=== PATIENT | male | born 1960 | race Caucasian/White ===

== ENCOUNTER 2019-04-03 08:03 | Outpatient (CLI) | payer BC ==
--- NOTE | 2019-04-03 09:20 | CT ---
CT neck soft tissues with contrast: DATE: 04/03/2019 HISTORY: 58-year-old male with left otalgia, left neck pain and tenderness, and odynophagia. Rule out neck mas s. FINDINGS: In the apicoposterior segment of the left upper lobe, there is an approximately 1 x 0.9 x 0.7 cm nonc alcified pulmonary nodule with irregular margins. No major pathology identified involving trachea, larynx, and thyroid. No evidence of significant cervical lymphadenopathy. No major pathology identified involving parotid, carotid, parapharyngeal, retropharyngeal, pharyngeal mucosal, posterior cervical, perivertebral, manager economic, submandibular, and sublingual, spaces. No evidence of focal edema or abscess. No gross opacification of bilateral tympanomastoid cavities or external auditory canals. No destructive osseous lesion identified. No high-grade cervical spondylosis. IMPRESSION: 1) 1 cm left upper lobe pulmonary nodule. Recommend CT of chest to search for other pulmonary nodules . Consider PET scan. 2) no pathology of the neck identified.
== END 2019-04-03 08:04 | disposition home or self-care (01) ==
LOC: SCSCT 08:03
PROVIDERS: ATTEND Otolaryngology Otolaryngic Allergy
DX: H92.02 Otalgia, left ear (principal); R13.10 Dysphagia, unspecified; R91.1 Solitary pulmonary nodule
CPT/HCPCS: 70491

== ENCOUNTER 2019-04-10 10:06 | Outpatient (CLI) | payer BC ==
--- NOTE | 2019-04-10 13:58 | CT ---
CT CHEST WITH CONTRAST: Axial tomograms obtained through the chest with iv enhancement. Multiplanar reconstruction. INDICATION: Followup pulmonary nodule seen in the left upper lobe on recent CT neck performed 04/03/2019. FINDINGS: There is an irregularly shaped somewhat spiculated nodule in the left upper lobe which is measured at 7-8 mm on the coronal plane. This corresponds to the nodule noted on recent neck CT. A second small nodule in the left upper lobe is seen measuring approximately 3-4 mm in the coronal pl ane seen best on coronal image 86. Lungs are otherwise clear. No other nodule or mass identified. No infiltrate or effusion. Mediasti num unremarkable. Images through the upper abdomen reveals a large exophytic septated cyst arising f rom the mid pole of the right kidney. This is a bi-lobed septated cystic lesion. The largest cyst i nvolves the renal cortex measuring 5.3 cm diameter and the smaller lobe which is exophytic and anteri or measures 4.5 cm diameter. IMPRESSION: 1. An indeterminate somewhat spiculated nodule measuring 7-8 mm in the left upper lobe peripherally. This is moderately suspicious. Followup CT within 3 months or additional evaluation with PET scan is recommended. 2. A second small nodule in the left upper lobe measuring in the 3-4 mm range should be followed. 3. A complex bi-lobed septated cyst arises from the mid right kidney. POS: JARRELL
== END 2019-04-10 10:07 | disposition home or self-care (01) ==
LOC: SCSCT 10:06
PROVIDERS: ATTEND Otolaryngology Otolaryngic Allergy
DX: R13.10 Dysphagia, unspecified (principal); R91.1 Solitary pulmonary nodule; N28.1 Cyst of kidney, acquired
CPT/HCPCS: 71260